=== PATIENT | male | born 2000 | race Two or more races ===

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

== ENCOUNTER 2020-01-02 23:52 | Emergency (ER) | payer MEDICAID ==
[~2020-01-02] VITALS: Ht 152.4 cm; Wt 68.0 kg
[2020-01-03 00:23] VITALS: BP 92/65
[2020-01-03] MEDS ORDERED: LORAZEPAM INJ 2 MG/ML VIAL IM ONE (01:30)
--- NOTE | 2020-01-03 01:31 | NUR ---
DR JENNINGS AT BEDSIDE
[2020-01-03] MEDS ORDERED: LORAZEPAM INJ 2 MG/ML VIAL ONE (01:34)
--- NOTE | 2020-01-03 02:45 | NUR ---
Patient discharged to home in stable condition. Written and verbal after care instructions given. Patient verbalizes understanding of instruction. ambulatory with a steady gait
== END 2020-01-03 02:46 | disposition home or self-care (01) ==
LOC: ER 23:56
DX: F41.9 Anxiety disorder, unspecified (principal); J45.909 Unspecified asthma, uncomplicated; F17.200 Nicotine dependence, unspecified, uncomplicated; Z88.1 Allergy status to other antibiotic agents
CPT/HCPCS: 96372; 99283; J2060

== ENCOUNTER 2020-01-31 22:19 | Emergency (ER) | payer MEDICAID ==
[~2020-01-31] VITALS: Ht 149.9 cm; Wt 74.8 kg
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
[2020-01-31] MEDS ORDERED: LORAZEPAM INJ 2 MG/ML VIAL ONE (22:43)
--- NOTE | 2020-01-31 22:47 | NUR ---
IM MED GIVEN, PT LEANNA WELL.
[2020-01-31 22:50] LABS: BASOPHILS # (AUTO) 0.2 /CMM (0.0-0.2); BASOPHILS % (AUTO) 1.1 % (0.0-2.0); EOSINOPHILS % (AUTO) 0.8 % (0.0-6.0); HEMATOCRIT 49 % (39-51); HEMOGLOBIN 16.1 g/dL (13.5-17.5); LYMPHOCYTES # (AUTO) 4.8 /CMM (0.8-4.8); LYMPHOCYTES % (AUTO) 22.9 % (20.0-44.0); MEAN CORPUSCULAR HGB CONC 33 g/dl (31.0-36.0); MEAN CORPUSCULAR VOLUME 88 fL (80-96); MONOCYTES % (AUTO) 9.3 % (2.0-12.0); NEUTROPHILS # (AUTO) 13.9 /CMM (1.8-8.9); NEUTROPHILS % (AUTO) 65.9 % (43.0-81.0); PLATELET COUNT (AUTO) 442 /CMM (150-450); WHITE BLOOD COUNT (AUTO) 21.1 K/uL (4.3-11.0)
[2020-01-31 22:57] LABS: CALCIUM, SERUM 9.8 mg/dL (8.5-10.1); CARBON DIOXIDE 29 mmol/L (21-32); CHLORIDE 104 mmol/L (98-107); CREATININE 0.7 mg/dL (0.6-1.3); GLUCOSE 109 mg/dL (74-106); SODIUM SERUM 143 mmol/L (136-145); UREA NITROGEN, BLOOD 22 mg/dL (7-18)
[2020-01-31] MEDS ORDERED: LORAZEPAM INJ 2 MG/ML VIAL IM ONE (23:00)
--- NOTE | 2020-01-31 23:01 | NUR ---
URINE SENT TO STAT LAB
[2020-01-31 23:04] LABS: APPEARANCE,URINE Clear (CLEAR); BILIRUBIN,URINE Negative (NEGATIVE); BLOOD, URINE Small Ery/uL (NEGATIVE); COLOR,URINE Yellow (YELLOW); KETONES,URINE Negative (NEGATIVE); LEUKOCYTE ESTERASE ,URINE Negative (NEGATIVE); NITRITE, URINE Negative (NEGATIVE); PH,URINE 5.5 (5.0-8.0); PROTEIN,URINE 30 mg/dl (NEGATIVE); UGLUCOSE Negative (NEGATIVE); UROBILINOGEN,URINE 0.2 EU/dL (0.2)
[2020-01-31 23:12] LABS: ALANINE AMINOTRANSFERASE 38 U/L (12-78); ALBUMIN 4.5 g/dL (3.4-5.0); ALCOHOL, BLOOD < 3 mg/dL (0-0); ALKALINE PHOSPHATASE 152 U/L (46-116); ASPARTATE AMINOTRANSFERASE 30 U/L (15-37); BILIRUBIN,DIRECT 0.2 mg/dL (0.0-0.2); BILIRUBIN,TOTAL 1.2 mg/dL (0.2-1.0); SALICYLATE 0.5 mg/dL (2.8-20.0); TOTAL PROTEIN, SERUM 8.4 g/dL (6.4-8.2)
[2020-01-31 23:13] LABS: ACETAMINOPHEN 0 ug/ml (10-30)
[2020-01-31 23:28] LABS: BACTERIA,URINE Few /HPF (None Seen); SQUAMOUS EPITHELIAL CELL,UR Few /HPF (None Seen)
--- NOTE | 2020-02-01 00:11 | NUR ---
Patient discharged to home in stable condition. Written and verbal after care instructions given. Patient verbalizes understanding of instruction.Pt ambulatory with a steady gait
[2020-02-01 00:12] VITALS: BP 110/79
--- NOTE | 2020-02-02 10:34 | NUR ---
CALLED AND SPOKE TO PATIEND AND FAMILY AND FOLLOWED UP REGARDING ELEVATED CK MB LEVEL. ADVISED TO FOLLOW UP W/ PMD AND IF STILL HAVING SYMPTOMS.
== END 2020-02-01 00:12 | disposition home or self-care (01) ==
LOC: ER 22:26
DX: F15.10 Other stimulant abuse, uncomplicated (principal); J45.909 Unspecified asthma, uncomplicated; Z88.0 Allergy status to penicillin; Z88.1 Allergy status to other antibiotic agents; Z85.9 Personal history of malignant neoplasm, unspecified
CPT/HCPCS: 36415; 71045; 80048; 80076; 80305; 80307; 80329; 81001; 82550; 85025; 87086; 96372; 99284; G0480; J2060; 81000-TC

== ENCOUNTER 2023-11-14 23:02 | Emergency (ER) | payer MEDICAID ==
[~2023-11-14] VITALS: Ht 157.5 cm; Wt 81.6 kg
[2023-11-14 23:21] VITALS: BP 157/95; TEMP 98.5
[2023-11-14 23:43] VITALS: O2SAT 99
[2023-11-14] MEDS ORDERED: CIPR7.5D9 EACH EAR (23:43)
== END 2023-11-14 23:48 | disposition home or self-care (01) ==
LOC: ER 23:06
DX: H60.92 Unspecified otitis externa, left ear (principal); J45.909 Unspecified asthma, uncomplicated; F17.200 Nicotine dependence, unspecified, uncomplicated; Z79.899 Other long term (current) drug therapy; Z88.1 Allergy status to other antibiotic agents

== ENCOUNTER 2023-11-26 13:41 | Emergency (ER) | payer MEDICAID ==
[~2023-11-26] VITALS: Ht 152.4 cm; Wt 83.9 kg
[~2023-11-26 13:41] MED LIST: CIPR7.5D9 EACH EAR
[2023-11-26 14:18] VITALS: TEMP 98.1
[2023-11-26] MEDS ORDERED: LORA-259 PO (16:14)
[2023-11-26 16:34] VITALS: BP 125/78; O2SAT 97
== END 2023-11-26 16:31 | disposition home or self-care (01) ==
LOC: ER 13:44
DX: G47.00 Insomnia, unspecified (principal); J45.909 Unspecified asthma, uncomplicated; Z88.0 Allergy status to penicillin

== ENCOUNTER 2023-11-29 13:22 | Emergency (ER) | payer MEDICAID ==
[~2023-11-29] VITALS: Ht 152.4 cm; Wt 83.5 kg
[~2023-11-29 13:22] MED LIST changes: +LORA-259 PO
[2023-11-29 13:41] VITALS: BP 111/71; TEMP 97.8
[2023-11-29] MEDS ORDERED: LORAZEPAM 0.5 MG TABLET ONE (14:05)
[2023-11-29] MEDS ORDERED: LORAZEPAM 1 MG TABLET PO ONE (14:30)
[2023-11-29 14:46] VITALS: O2SAT 98
== END 2023-11-29 14:46 | disposition home or self-care (01) ==
LOC: ER 13:26
DX: F15.10 Other stimulant abuse, uncomplicated (principal); J45.909 Unspecified asthma, uncomplicated; F17.200 Nicotine dependence, unspecified, uncomplicated; Z88.0 Allergy status to penicillin

== ENCOUNTER 2025-08-10 19:30 | Emergency (ER) | payer MEDICAID ==
[~2025-08-10] VITALS: Ht 154.9 cm; Wt 87.1 kg
[2025-08-10 19:57] VITALS: BP 189/112; TEMP 100; O2SAT 96
[2025-08-10 20:32] LABS: BARBITURATE, URINE NEGATIVE (NEGATIVE); BENZODIAZEPINE, URINE NEGATIVE (NEGATIVE); COCCAINE, URINE NEGATIVE (NEGATIVE); OPIATE, URINE NEGATIVE (NEGATIVE)
[2025-08-10 20:34] LABS: AMPHETAMINE, URINE POSITIVE (NEGATIVE); CANNABINOID, URINE POSITIVE (NEGATIVE)
== END 2025-08-10 20:51 | disposition home or self-care (01) ==
LOC: ER 19:31
DX: F15.10 Other stimulant abuse, uncomplicated (principal); F17.200 Nicotine dependence, unspecified, uncomplicated; J45.909 Unspecified asthma, uncomplicated; Z88.0 Allergy status to penicillin; Z86.59 Personal history of other mental and behavioral disorders

== ENCOUNTER 2025-08-26 23:43 | Emergency (ER) | payer MEDICAID ==
[~2025-08-26] VITALS: Ht 152.4 cm; Wt 88.0 kg
[2025-08-27] MEDS ORDERED: METOCLOPRAMIDE HCL 10 MG/2 ML VIAL ONE (00:01)
[2025-08-27] MEDS ORDERED: SUMATRIPTAN SUCCINATE 6 MG/0.5 ML VIAL SQ ONE (00:01)
[2025-08-27] MEDS: SUMATRIPTAN SUCCINATE 6 MG/0.5 ML VIAL SQ ONE (00:12)
[2025-08-27] MEDS: IV NS 0.9% 1,000 ML BAG IV ONE (00:12)
[2025-08-27] MEDS: METOCLOPRAMIDE HCL 10 MG/2 ML VIAL IV ONE (00:12)
[2025-08-27 01:58] VITALS: BP 132/87; TEMP 98.2; O2SAT 98
== END 2025-08-27 01:58 | disposition home or self-care (01) ==
LOC: ER 23:48
DX: D49.6 Neoplasm of unspecified behavior of brain (principal); F17.200 Nicotine dependence, unspecified, uncomplicated; J45.909 Unspecified asthma, uncomplicated; Z88.0 Allergy status to penicillin
CPT/HCPCS: 99285; 70450; 96374; 96361; 96372; J3030; J2765; J7030